=== PATIENT | female | born 1995 | race Hispanic/Latino ===

== ENCOUNTER 2018-05-25 15:41 | Emergency (ER) | payer BC, MEDICAID ==
[~2018-05-25 15:41] MED LIST: DOCU-116 PO; PREN1TAB80 PO
[2018-05-25 16:03] LABS: APPEARANCE,URINE Clear (CLEAR); BILIRUBIN,URINE Negative (NEGATIVE); COLOR,URINE Yellow (YELLOW); GLUCOSE, URINE (UA) Negative (NEGATIVE); KETONES,URINE Negative (NEGATIVE); LEUKOCYTE ESTERASE ,URINE Moderate (NEGATIVE); NITRATE,URINE Negative (NEGATIVE); OCCULT BLOOD,URINE Negative (NEGATIVE); PH,URINE 7.5 (5.0-8.0); PROTEIN,URINE Negative (NEGATIVE)
[2018-05-25 17:10] LABS: BACTERIA,URINE Few /HPF (None Seen); RBC,URINE 0-1 /HPF (0-1); SQUAMOUS EPITHELIAL CELL,UR Few /HPF (0-2)
[2018-05-25 17:11] LABS: AMORPHOUS SEDIMENT,UR Few /LPF (None Seen)
[2018-05-25 17:13] LABS: MUCUS,URINE Rare LPF (None Seen); SPERM,URINE Rare /HPF (None Seen)
== END 2018-05-25 16:49 | disposition home or self-care (01) ==
LOC: EDH 15:41
DX: O23.41 Unspecified infection of urinary tract in pregnancy, first trimester (principal); Z3A.13 13 weeks gestation of pregnancy
CPT/HCPCS: 81001; 87088

== ENCOUNTER 2018-09-23 18:13 | Emergency (ER) | payer BC, MEDICAID | END 2018-09-23 19:22 | disposition home or self-care (01) | LOC: EDH 18:13 | DX: O99.512 Diseases of the respiratory system complicating pregnancy, second trimester (principal); R09.81 Nasal congestion; J45.909 Unspecified asthma, uncomplicated; Z3A.26 26 weeks gestation of pregnancy ==

== ENCOUNTER 2018-11-13 11:15 | Emergency (ER) | payer MEDICAID | END 2018-11-13 11:36 | disposition home or self-care (01) | LOC: EDH 11:15 | DX: H66.92 Otitis media, unspecified, left ear (principal); J45.909 Unspecified asthma, uncomplicated ==

== ENCOUNTER 2019-04-25 20:48 | Emergency (ER) | payer MEDICAID ==
[2019-04-25 21:31] LABS: BASOPHILS % (AUTO) 0.7 % (0.0-5.0); EOSINOPHILS % (AUTO) 1.7 % (0.0-8.0); HEMATOCRIT 38.2 % (36-48); LYMPHOCYTES % (AUTO) 24.9 % (21.0-51.0); MEAN CORPUSCULAR HEMOGLOBIN 29.3 pg (27.0-33.0); MEAN CORPUSCULAR HGB CONC 34.1 g/dL (32.0-36.0); MEAN CORPUSCULAR VOLUME 85.8 fL (80-100); MONOCYTES % (AUTO) 8.5 % (3.0-13.0); NEUTROPHILS % (AUTO) 64.2 % (40.0-77.0); PLATELET COUNT (AUTO) 269 K/uL (130-400); RED BLOOD CELL COUNT(AUTO) 4.46 MIL/uL (4.00-5.50); RED CELL DISTRIBUTION WIDTH 14.3 % (11.0-15.5); WHITE BLOOD COUNT (AUTO) 6.6 K/uL (4.8-10.8)
[2019-04-25 21:41] LABS: CREATININE 0.7 mg/dL (0.5-1.5); POTASSIUM 3.7 mmol/L (3.5-5.1)
[2019-04-25 21:47] LABS: ALBUMIN 3.8 g/dL (3.5-5.0); BILIRUBIN,TOTAL 0.3 mg/dL (0.2-1.0); TOTAL PROTEIN, SERUM 7.3 g/dL (6.0-8.3)
[2019-04-25 21:57] LABS: INR 0.92 (0.85-1.15); PARTIAL THROMBOPLASTIN TIME 24.7 SEC (26.3-35.5); PROTHROMBIN TIME 9.7 SEC (9.6-11.6)
[2019-04-25 22:08] LABS: APPEARANCE,URINE Clear (CLEAR); BILIRUBIN,URINE Negative (NEGATIVE); COLOR,URINE Yellow (YELLOW); GLUCOSE, URINE (UA) Negative (NEGATIVE); KETONES,URINE Negative (NEGATIVE); LEUKOCYTE ESTERASE ,URINE Trace (NEGATIVE); NITRATE,URINE Negative (NEGATIVE); OCCULT BLOOD,URINE Negative (NEGATIVE); PH,URINE 6.5 (5.0-8.0); PROTEIN,URINE Negative (NEGATIVE)
[2019-04-25 22:09] LABS: HCG,QUAL RESULT NEGATIVE (NEGATIVE)
[2019-04-25 22:14] LABS: BACTERIA,URINE Few /HPF (None Seen); MUCUS,URINE None Seen LPF (None Seen); SQUAMOUS EPITHELIAL CELL,UR 0-2 /HPF (0-2)
[2019-04-26] MEDS ORDERED: CYCLOBENZAPRINE HCL 10 MG TABLET ONE (00:02)
[2019-04-26] MEDS ORDERED: TRAMADOL HCL 50 MG TABLET ONE (00:02)
== END 2019-04-26 00:30 | disposition home or self-care (01) ==
LOC: EDH 20:48
DX: S20.219A Contusion of unspecified front wall of thorax, initial encounter (principal); S50.11XA Contusion of right forearm, initial encounter; M54.2 Cervicalgia; J45.909 Unspecified asthma, uncomplicated; Z98.890 Other specified postprocedural states; Z72.0 Tobacco use; V89.2XXA Person injured in unspecified motor-vehicle accident, traffic, initial encounter; Y93.89 Activity, other specified; Y92.89 Other specified places as the place of occurrence of the external cause; Y99.8 Other external cause status
CPT/HCPCS: 36415; 70450; 71045; 71250; 72125; 72131; 74176; 80053; 81001; 81025; 82150; 82550; 84484; 85025; 85610; 85730; 93005